=== PATIENT | female | born 2005 | race Hispanic/Latino ===

== ENCOUNTER 2025-03-13 22:45 | Emergency (ER) | payer BC ==
[2025-03-13] MEDS ORDERED: Sodium Chloride 0.9% 10 ML Syringe FLUSH PRN (23:20)
[2025-03-13] MEDS: Sodium Chloride 0.9% 1,000 ML IV ONE (23:34)
[2025-03-13 23:51] LABS: BASOPHILS ABSOLUTE AUTO 0.1 K/mm3 (0.0-0.3); BASOPHILS PERCENT AUTO 0.6 % (0.0-1.0); EOSINOPHILS PERCENT AUTO 0.2 % (0.0-5.0); HEMATOCRIT 45.5 % (37.0-47.0); HEMOGLOBIN 15.2 gm/dl (12.0-16.0); IMMATURE GRAN ABSOLUTE AUTO 0.03 K/mm3 (0.00-0.05); IMMATURE GRAN PERCENT AUTO 0.2 % (0.0-0.4); LYMPHOCYTES ABSOLUTE AUTO 1.8 K/mm3 (2.0-8.8); LYMPHOCYTES PERCENT AUTO 12.9 % (50.0-65.0); MEAN CORPUSCULAR HGB CONC 33.4 g/dl (32.0-36.0); MEAN CORPUSCULAR VOLUME 80.8 fl (83.0-99.0); MEAN PLATELET VOLUME 9.6 fl (9.4-12.3); MONOCYTES ABSOLUTE AUTO 0.6 K/mm3 (0.1-1.4); NEUTROPHILS ABSOLUTE AUTO 11.6 K/mm3 (1.5-8.5); NEUTROPHILS PERCENT AUTO 82.1 % (35.0-45.0); PLATELET COUNT,PLT 365 K/mm3 (150-400); RED BLOOD CELL COUNT 5.63 M/mm3 (4.10-5.30); WHITE BLOOD CELL COUNT,WBC 14.13 K/mm3 (4.5-13.5)
[2025-03-14 00:05] LABS: APPEARANCE,URINE CLEAR (Clear); BILIRUBIN,URINE NEGATIVE (Negative); COLOR,URINE YELLOW (Yellow); GLUCOSE,URINE NEGATIVE (Negative); KETONES,URINE 4+ (Negative); LEUKOCYTE ESTERASE,URINE NEGATIVE (Negative); NITRITE,URINE NEGATIVE (Negative); OCCULT BLOOD,URINE NEGATIVE (Negative); PROTEIN,URINE 2+ (Negative); UROBILINOGEN,URINE 0.2 (0.2-1.0)
[2025-03-14] MEDS: Metoclopramide 10 MG/2 ML SDV IVPUSH ONE (00:07)
[2025-03-14 00:08] LABS: BACTERIA,URINE FEW /hpf (FEW); EPITHELIAL CELLS,URINE 0-5 /hpf (0-5); MUCUS,URINE MODERATE /hpf (FEW); RBC,URINE 0-5 /hpf (0-5); WBC,URINE 0-5 /hpf (0-5)
[2025-03-14] MEDS: diphenhydrAMINE 50 MG/ML SDV IVPUSH ONE (00:08)
[2025-03-14 00:25] LABS: A/G RATIO 1.4 (1-2); ALBUMIN 4.3 g/dl (3.4-5.0); ANION GAP 15.9 (5-15); BILIRUBIN TOTAL 0.7 mg/dL (0.2-1.0); BUN/CREATININE RATIO 16.3 (14-18); CALCIUM 9.2 mg/dL (8.5-10.1); CREATININE 0.8 mg/dL (0.55-1.02); EST CRCL DRUG DOSING (CG) 89.28 mL/min; POTASSIUM,K 3.9 mEq/L (3.5-5.1); PROTEIN TOTAL,TP 7.4 g/dl (6.4-8.2)
== END 2025-03-14 01:18 | disposition home or self-care (01) ==
LOC: JD.ED 22:45
DX: O21.0 Mild hyperemesis gravidarum (principal); Z3A.01 Less than 8 weeks gestation of pregnancy; Z79.899 Other long term (current) drug therapy; Z86.16 Personal history of COVID-19
CPT/HCPCS: 36415; 80053; 81001; 83735; 84702; 85025; 96361; 96374; 96375; 99284; J1200; J2765; J7030; 99283

== ENCOUNTER 2025-03-29 07:09 | Emergency (ER) | payer SELFPAY ==
[2025-03-29] MEDS: Sodium Chloride 0.9% 10 ML Syringe FLUSH PRN (08:09)
[2025-03-29] MEDS: Ondansetron 4 MG/2 ML SDV IVPUSH ONE (08:09)
[2025-03-29] MEDS: Sodium Chloride 0.9% 1,000 ML IV SCH (08:11)
[2025-03-29] MEDS ORDERED: Dextrose 5%-Lactated Ringers 1,000 ML IV SCH (08:30)
[2025-03-29 08:47] LABS: A/G RATIO 1.1 (1-2); ALBUMIN 3.8 g/dl (3.4-5.0); ANION GAP 15.4 (5-15); BILIRUBIN TOTAL 0.6 mg/dL (0.2-1.0); BUN/CREATININE RATIO 17.1 (14-18); CALCIUM 9.1 mg/dL (8.5-10.1); CREATININE 0.7 mg/dL (0.55-1.02); EST CRCL DRUG DOSING (CG) 102.24 mL/min; POTASSIUM,K 3.4 mEq/L (3.5-5.1); PROTEIN TOTAL,TP 7.2 g/dl (6.4-8.2)
== END 2025-03-29 09:37 | disposition home or self-care (01) ==
LOC: JD.ED 07:09
DX: O21.9 Vomiting of pregnancy, unspecified (principal); Z86.16 Personal history of COVID-19; Z3A.10 10 weeks gestation of pregnancy
CPT/HCPCS: 36415; 80053; 96361; 96374; 99284; J2405; J7030; 99282

== ENCOUNTER 2025-04-02 21:34 | Emergency (ER) | payer SELFPAY ==
[2025-04-02 22:23] LABS: BASOPHILS ABSOLUTE AUTO 0.1 K/mm3 (0.0-0.3); BASOPHILS PERCENT AUTO 0.5 % (0.0-1.0); EOSINOPHILS PERCENT AUTO 0.2 % (0.0-5.0); HEMATOCRIT 43.1 % (37.0-47.0); HEMOGLOBIN 14.6 gm/dl (12.0-16.0); IMMATURE GRAN ABSOLUTE AUTO 0.03 K/mm3 (0.00-0.05); IMMATURE GRAN PERCENT AUTO 0.2 % (0.0-0.4); LYMPHOCYTES ABSOLUTE AUTO 1.3 K/mm3 (2.0-8.8); LYMPHOCYTES PERCENT AUTO 10.4 % (50.0-65.0); MEAN CORPUSCULAR HEMOGLOBIN 27.3 pg (28.0-32.0); MEAN CORPUSCULAR HGB CONC 33.9 g/dl (32.0-36.0); MEAN CORPUSCULAR VOLUME 80.7 fl (83.0-99.0); MEAN PLATELET VOLUME 9.7 fl (9.4-12.3); MONOCYTES ABSOLUTE AUTO 0.5 K/mm3 (0.1-1.4); MONOCYTES PERCENT AUTO 3.6 % (2.0-10.0); NEUTROPHILS ABSOLUTE AUTO 10.8 K/mm3 (1.5-8.5); NEUTROPHILS PERCENT AUTO 85.1 % (35.0-45.0); PLATELET COUNT,PLT 345 K/mm3 (150-400); RED BLOOD CELL COUNT 5.34 M/mm3 (4.10-5.30); WHITE BLOOD CELL COUNT,WBC 12.65 K/mm3 (4.5-13.5)
[2025-04-02 22:25] LABS: APPEARANCE,URINE CLEAR (Clear); BILIRUBIN,URINE 1+ (Negative); COLOR,URINE YELLOW (Yellow); GLUCOSE,URINE NEGATIVE (Negative); KETONES,URINE 4+ (Negative); LEUKOCYTE ESTERASE,URINE NEGATIVE (Negative); NITRITE,URINE NEGATIVE (Negative); OCCULT BLOOD,URINE NEGATIVE (Negative); PROTEIN,URINE 2+ (Negative); UROBILINOGEN,URINE 0.2 (0.2-1.0)
[2025-04-02 22:33] LABS: BARBITURATE SCREEN,URINE NEGATIVE (CUTOFF=200); BENZODIAZEPINES SCREEN,URINE NEGATIVE (CUTOFF=150); BUPRENORPHINE SCREEN,URINE NEGATIVE (CUTOFF=10); METHADONE SCREEN, URINE NEGATIVE (CUTOFF=200); METHAMPHETAMINES SCREEN, URINE NEGATIVE (CUTOFF=500); OXYCODONE SCREEN,URINE NEGATIVE (CUT0FF=100); THC SCREEN,URINE 20 NG/ML PRESUMPTIVE POSITIVE (CUTOFF=50)
[2025-04-02 22:35] LABS: AMPHETAMINES SCREEN, URINE NEGATIVE (CUTOFF=500); BACTERIA,URINE FEW /hpf (FEW); MUCUS,URINE FEW /hpf (FEW); RBC,URINE 0-5 /hpf (0-5); WBC,URINE 0-5 /hpf (0-5)
[2025-04-02] MEDS: Ondansetron 4 MG/2 ML SDV IVPUSH ONE ×2 (22:48→22:51)
[2025-04-02] MEDS: Sodium Chloride 0.9% 1,000 ML IV ONE (22:50)
[2025-04-02 22:51] LABS: A/G RATIO 1.1 (1-2); ANION GAP 17.5 (5-15); BILIRUBIN TOTAL 0.7 mg/dL (0.2-1.0); BUN/CREATININE RATIO 13.8 (14-18); CALCIUM 9.6 mg/dL (8.5-10.1); CREATININE 0.8 mg/dL (0.55-1.02); EST CRCL DRUG DOSING (CG) 89.46 mL/min; POTASSIUM,K 3.5 mEq/L (3.5-5.1); PROTEIN TOTAL,TP 7.6 g/dl (6.4-8.2)
== END 2025-04-03 00:24 | disposition home or self-care (01) ==
LOC: JD.ED 21:34
DX: O21.0 Mild hyperemesis gravidarum (principal); O99.321 Drug use complicating pregnancy, first trimester; F12.10 Cannabis abuse, uncomplicated; Z79.899 Other long term (current) drug therapy; Z86.16 Personal history of COVID-19; Z3A.10 10 weeks gestation of pregnancy
CPT/HCPCS: 36415; 76817; 76817-26; 80053; 80306; 81001; 82550; 83690; 83735; 84702; 85025; 86900; 86901; 96361; 96374; 96376; 99284; 99284-25; J2405; J7030

== ENCOUNTER 2025-04-17 18:45 | Emergency (ER) | payer MEDICAID ==
[2025-04-17] MEDS ORDERED: Sodium Chloride 0.9% 10 ML Syringe FLUSH PRN (19:26)
[2025-04-17 19:37] LABS: BASOPHILS ABSOLUTE AUTO 0.1 K/mm3 (0.0-0.3); BASOPHILS PERCENT AUTO 0.4 % (0.0-1.0); EOSINOPHILS PERCENT AUTO 0.3 % (0.0-5.0); HEMATOCRIT 41.9 % (37.0-47.0); HEMOGLOBIN 14.4 gm/dl (12.0-16.0); IMMATURE GRAN ABSOLUTE AUTO 0.06 K/mm3 (0.00-0.05); IMMATURE GRAN PERCENT AUTO 0.5 % (0.0-0.4); LYMPHOCYTES ABSOLUTE AUTO 1.9 K/mm3 (2.0-8.8); LYMPHOCYTES PERCENT AUTO 14.3 % (50.0-65.0); MEAN CORPUSCULAR HEMOGLOBIN 27.4 pg (28.0-32.0); MEAN CORPUSCULAR HGB CONC 34.4 g/dl (32.0-36.0); MEAN CORPUSCULAR VOLUME 79.8 fl (83.0-99.0); MEAN PLATELET VOLUME 9.5 fl (9.4-12.3); MONOCYTES ABSOLUTE AUTO 0.8 K/mm3 (0.1-1.4); MONOCYTES PERCENT AUTO 6.1 % (2.0-10.0); NEUTROPHILS ABSOLUTE AUTO 10.4 K/mm3 (1.5-8.5); NEUTROPHILS PERCENT AUTO 78.4 % (35.0-45.0); PLATELET COUNT,PLT 328 K/mm3 (150-400); RED BLOOD CELL COUNT 5.25 M/mm3 (4.10-5.30); WHITE BLOOD CELL COUNT,WBC 13.29 K/mm3 (4.5-13.5)
[2025-04-17] MEDS: Sodium Chloride 0.9% 1,000 ML IV ONE (19:44)
[2025-04-17] MEDS: Ondansetron 4 MG/2 ML SDV IVPUSH ONE (19:44)
[2025-04-17 20:08] LABS: A/G RATIO 1.1 (1-2); ALBUMIN 3.8 g/dl (3.4-5.0); ANION GAP 14.1 (5-15); BILIRUBIN TOTAL 0.8 mg/dL (0.2-1.0); BUN/CREATININE RATIO 13.8 (14-18); CREATININE 0.8 mg/dL (0.55-1.02); EST CRCL DRUG DOSING (CG) 87.49 mL/min; POTASSIUM,K 3.1 mEq/L (3.5-5.1); PROTEIN TOTAL,TP 7.2 g/dl (6.4-8.2)
[2025-04-17] MEDS: Potassium Chloride 20 MEQ Tab.ER PO ONE (22:55)
== END 2025-04-17 23:00 | disposition home or self-care (01) ==
LOC: JD.ED 18:45
DX: O21.9 Vomiting of pregnancy, unspecified (principal); O99.281 Endocrine, nutritional and metabolic diseases complicating pregnancy, first trimester; E87.6 Hypokalemia; Z86.16 Personal history of COVID-19; Z3A.12 12 weeks gestation of pregnancy
CPT/HCPCS: 36415; 80053; 83735; 84702; 85025; 96361; 96374; 99284-25; A9270-GY; J2405; J7030

== ENCOUNTER 2025-04-19 04:59 | Emergency (ER) | payer MEDICAID ==
[2025-04-19] MEDS ORDERED: Sodium Chloride 0.9% 10 ML Syringe FLUSH PRN (05:16)
[2025-04-19] MEDS: Sodium Chloride 0.9% 1,000 ML IV ONE (05:27)
[2025-04-19] MEDS: Ondansetron 4 MG/2 ML SDV IVPUSH ONE (05:27)
[2025-04-19 05:34] LABS: BASOPHILS ABSOLUTE AUTO 0.1 K/mm3 (0.0-0.3); BASOPHILS PERCENT AUTO 0.4 % (0.0-1.0); EOSINOPHILS ABSOLUTE AUTO 0.1 K/mm3 (0.0-0.7); HEMATOCRIT 43.3 % (37.0-47.0); HEMOGLOBIN 14.7 gm/dl (12.0-16.0); IMMATURE GRAN ABSOLUTE AUTO 0.04 K/mm3 (0.00-0.05); IMMATURE GRAN PERCENT AUTO 0.4 % (0.0-0.4); LYMPHOCYTES ABSOLUTE AUTO 2.9 K/mm3 (2.0-8.8); LYMPHOCYTES PERCENT AUTO 25.6 % (50.0-65.0); MEAN CORPUSCULAR HEMOGLOBIN 27.2 pg (28.0-32.0); MEAN CORPUSCULAR HGB CONC 33.9 g/dl (32.0-36.0); MEAN CORPUSCULAR VOLUME 80.2 fl (83.0-99.0); MEAN PLATELET VOLUME 9.5 fl (9.4-12.3); MONOCYTES ABSOLUTE AUTO 0.9 K/mm3 (0.1-1.4); MONOCYTES PERCENT AUTO 7.5 % (2.0-10.0); NEUTROPHILS ABSOLUTE AUTO 7.4 K/mm3 (1.5-8.5); NEUTROPHILS PERCENT AUTO 65.1 % (35.0-45.0); PLATELET COUNT,PLT 338 K/mm3 (150-400); WHITE BLOOD CELL COUNT,WBC 11.37 K/mm3 (4.5-13.5)
[2025-04-19] MEDS: Vitamin B6-pyridOXINE 50 MG Tab PO ONE (05:40)
[2025-04-19 05:42] LABS: A/G RATIO 1.1 (1-2); ALBUMIN 3.7 g/dl (3.4-5.0); ANION GAP 16.3 (5-15); BILIRUBIN TOTAL 0.4 mg/dL (0.2-1.0); BUN/CREATININE RATIO 8.6 (14-18); CALCIUM 9.1 mg/dL (8.5-10.1); CREATININE 0.7 mg/dL (0.55-1.02); EST CRCL DRUG DOSING (CG) 102.03 mL/min; POTASSIUM,K 3.3 mEq/L (3.5-5.1); PROTEIN TOTAL,TP 7.2 g/dl (6.4-8.2)
[2025-04-19] MEDS: Potassium Chloride 20 MEQ Tab.ER PO ONE (06:28)
== END 2025-04-19 07:24 | disposition home or self-care (01) ==
LOC: JD.ED 04:59
DX: O21.9 Vomiting of pregnancy, unspecified (principal); Z79.899 Other long term (current) drug therapy; Z86.16 Personal history of COVID-19
CPT/HCPCS: 36415; 80053; 83735; 85025; 96361; 96374; 99284-25; A9270-GY; J2405; J7030

== ENCOUNTER 2025-05-02 21:14 | Emergency (ER) | payer MEDICAID ==
[2025-05-02] MEDS: Lactated Ringers 1,000 ML IV ONE (22:03)
[2025-05-02] MEDS: Metoclopramide 10 MG/2 ML SDV IVPUSH ONE (22:06)
[2025-05-02] MEDS: diphenhydrAMINE 50 MG/ML SDV IVPUSH ONE (22:07)
[2025-05-02 22:09] LABS: BASOPHILS ABSOLUTE AUTO 0.1 K/mm3 (0.0-0.3); BASOPHILS PERCENT AUTO 0.4 % (0.0-1.0); EOSINOPHILS PERCENT AUTO 0.2 % (0.0-5.0); HEMATOCRIT 42.3 % (37.0-47.0); HEMOGLOBIN 14.4 gm/dl (12.0-16.0); IMMATURE GRAN ABSOLUTE AUTO 0.04 K/mm3 (0.00-0.05); IMMATURE GRAN PERCENT AUTO 0.3 % (0.0-0.4); LYMPHOCYTES ABSOLUTE AUTO 1.5 K/mm3 (2.0-8.8); LYMPHOCYTES PERCENT AUTO 12.1 % (50.0-65.0); MEAN CORPUSCULAR HEMOGLOBIN 27.4 pg (28.0-32.0); MEAN CORPUSCULAR VOLUME 80.4 fl (83.0-99.0); MEAN PLATELET VOLUME 9.1 fl (9.4-12.3); MONOCYTES ABSOLUTE AUTO 0.4 K/mm3 (0.1-1.4); MONOCYTES PERCENT AUTO 3.5 % (2.0-10.0); NEUTROPHILS ABSOLUTE AUTO 10.2 K/mm3 (1.5-8.5); NEUTROPHILS PERCENT AUTO 83.5 % (35.0-45.0); PLATELET COUNT,PLT 325 K/mm3 (150-400); RED BLOOD CELL COUNT 5.26 M/mm3 (4.10-5.30); WHITE BLOOD CELL COUNT,WBC 12.18 K/mm3 (4.5-13.5)
[2025-05-02 22:32] LABS: A/G RATIO 1.1 (1-2); ALBUMIN 3.8 g/dl (3.4-5.0); ANION GAP 16.5 (5-15); BILIRUBIN TOTAL 0.7 mg/dL (0.2-1.0); BUN/CREATININE RATIO 15.7 (14-18); CALCIUM 9.1 mg/dL (8.5-10.1); CREATININE 0.7 mg/dL (0.55-1.02); EST CRCL DRUG DOSING (CG) 102.24 mL/min; POTASSIUM,K 3.5 mEq/L (3.5-5.1); PROTEIN TOTAL,TP 7.4 g/dl (6.4-8.2)
== END 2025-05-02 23:29 | disposition home or self-care (01) ==
LOC: JD.ED 21:14
DX: O21.9 Vomiting of pregnancy, unspecified (principal); Z79.899 Other long term (current) drug therapy; Z86.16 Personal history of COVID-19; Z3A.14 14 weeks gestation of pregnancy
CPT/HCPCS: 36415; 80053; 85025; 96361; 96374; 96375; 99284; J1200; J2765; J7120

== ENCOUNTER 2025-05-03 18:53 | Emergency (ER) | payer MEDICAID ==
[2025-05-03] MEDS: Metoclopramide 10 MG/2 ML SDV IVPUSH ONE (19:48)
[2025-05-03] MEDS: diphenhydrAMINE 50 MG/ML SDV IVPUSH ONE (19:48)
[2025-05-03] MEDS: Lactated Ringers 1,000 ML IV ONE (19:48)
[2025-05-03 20:07] LABS: APPEARANCE,URINE CLEAR (Clear); BILIRUBIN,URINE 1+ (Negative); COLOR,URINE DARK YELLOW (Yellow); GLUCOSE,URINE NEGATIVE (Negative); KETONES,URINE 4+ (Negative); LEUKOCYTE ESTERASE,URINE NEGATIVE (Negative); NITRITE,URINE NEGATIVE (Negative); OCCULT BLOOD,URINE NEGATIVE (Negative); PROTEIN,URINE 2+ (Negative); UROBILINOGEN,URINE 0.2 (0.2-1.0)
[2025-05-03 20:15] LABS: BARBITURATE SCREEN,URINE NEGATIVE (CUTOFF=200); BENZODIAZEPINES SCREEN,URINE NEGATIVE (CUTOFF=150); BUPRENORPHINE SCREEN,URINE NEGATIVE (CUTOFF=10); METHADONE SCREEN, URINE NEGATIVE (CUTOFF=200); METHAMPHETAMINES SCREEN, URINE NEGATIVE (CUTOFF=500); OXYCODONE SCREEN,URINE NEGATIVE (CUT0FF=100); THC SCREEN,URINE 20 NG/ML PRESUMPTIVE POSITIVE (CUTOFF=50)
[2025-05-03 20:22] LABS: AMPHETAMINES SCREEN, URINE NEGATIVE (CUTOFF=500)
[2025-05-03 20:23] LABS: BACTERIA,URINE FEW /hpf (FEW); MUCUS,URINE MANY /hpf (FEW); RBC,URINE 0-5 /hpf (0-5); WBC,URINE 0-5 /hpf (0-5)
== END 2025-05-03 22:22 | disposition home or self-care (01) ==
LOC: JD.ED 18:53
DX: O21.9 Vomiting of pregnancy, unspecified (principal); Z3A.14 14 weeks gestation of pregnancy; Z79.899 Other long term (current) drug therapy; Z86.16 Personal history of COVID-19
CPT/HCPCS: 80306; 81001; 96361; 96374; 96375; 99284; J1200; J2765; J7120; 99283